=== PATIENT | female | born 1995 | race Caucasian/White ===

== ENCOUNTER 2019-05-03 20:44 | Emergency (ER) | payer OTHER ==
[~2019-05-03] VITALS: Ht 162.6 cm; Wt 65.6 kg
[~2019-05-03 20:44] MED LIST: PREN-39 PO
[2019-05-03 21:01] VITALS: BP 131/76; PULSE 114; RESP 20; Ht 162.6 cm; Wt 65.6 kg
[2019-05-03] MEDS ORDERED: IBUPROFEN 600 MG TAB PO ONE (23:30)
[2019-05-03] MEDS ORDERED: IBUP-1542 PO (23:58)
[2019-05-03] MEDS ORDERED: CEPH-443 PO (23:58)
--- NOTE | 2019-05-04 00:18 | ERD ---
ER Documentation Chief Complaint Chief Complaint laceration left 2nd finger while cutting tomato x 1 hour ago HPI This [id number] 24-year-old female presents the emergency department complaining of left index finger injury which occurred just prior to arrival while cutting tomatoes with a kitchen knife. She states she accidentally sliced her left index finger with a kitchen knife. She denies any numbness or tingling but does report mild pain which is worse with movement. Her tetanus is up-to-date. She denies any other symptoms or injuries at this time. ROS All systems reviewed and are negative except as per history of present illness. Medications Home Meds Active Scripts Ibuprofen* (Motrin*) 600 Mg Tab, 600 MG PO Q6, #30 TAB Prov:DARWIN SIDDIQI PA-C 05/03/19 Cephalexin* (Keflex*) 500 Mg Capsule, 500 MG PO TID for 5 Days, CAP Prov:DARWIN SIDDIQI PA-C 05/03/19 Reported Medications Vits W-Ca,Fe,Fa(<1MG) ( Vitamins) 1 Tab Tablet, 1 TAB PO DAILY 06/09/14 Allergies Allergies: Coded Allergies: No Known Allergy (Unverified , 06/09/14) PMhx/Soc Medical and Surgical Hx: pt denies Medical Hx, pt denies Surgical Hx Hx Alcohol Use: No Hx Substance Use: No Hx Tobacco Use: No FmHx Family History: No diabetes Physical Exam Vitals Vital Signs Date Temp Pulse Resp B/P (MAP) Pulse Ox O2 O2 Flow FiO2 Time Delivery Rate 05/03/19 99.1 114 20 131/76 98 21:01 (94) Physical Exam Const: No acute distress Head: Atraumatic Eyes: Normal Conjunctiva ENT: Normal External Ears, Nose and Mouth. Neck: Full range of motion. No meningismus. Resp: No respiratory distress. Skin: No petechiae or rashes Ext: Skin avulsion noted to the distal end of the left index finger with mild active bleeding. No evidence of foreign body. Full range of motion of all fingers of the left upper extremity. Neur: Awake and alert Psych: Normal Mood and Affect Results 24 hrs Current Medications Medications Dose Sig/Ioana Start Time Status Last (Trade) Ordered Route PRN Stop Time Admin Dose Reason Admin Ibuprofen 600 mg ONCE ONCE 05/03/19 DC 05/03/19 (Motrin) PO 23:30 05/03/19 23:28 23:31 Procedures/MDM 24-year-old female presents to the emergency department for skin avulsion of the left index finger. No indication for sutures at this time. Wound was irrigated by corrections identification technician and pressure dressing was applied. The finger was wrapped in sterile fashion and patient was advised to have 2-day wound check. Patient is neurovascularly intact to the left upper extremity. Pulses were intact. Low suspicion for ligamental or tendon injury. Patient was advised to have close primary care follow-up and return to the department immediately for any new or worsening or concerning symptoms. She was in agreement and her questions and concerns were addressed prior to discharge. Departure Diagnosis: Primary Impression: Skin avulsion Condition: Fair Patient Instructions: Skin Avulsion Additional Instructions: WOUND CHECK:CONSULTE A FAHAD SALGADO EN 2 burch para deejay VÁSQUEZ HERIDA. DARWIN SIDDIQI PA-C May 04, 2019 00:18
== END 2019-05-04 00:14 | disposition home or self-care (01) ==
LOC: FTE 20:44
DX: S61.201A Unspecified open wound of left index finger without damage to nail, initial encounter (principal); W26.0XXA Contact with knife, initial encounter; Y92.9 Unspecified place or not applicable
CPT/HCPCS: Z7502; Z7610; 99283